=== PATIENT | female | born 1985 | race American Indian/Alaskan Native ===

== ENCOUNTER 2019-02-21 20:44 | Inpatient (IN) | payer MEDICAID ==
[2019-02-22 00:34] LABS: Hemoglobin 12.8 gm/dl (10.1-14.3); Mean Corpuscular HGB Conc 33 % (30-34); Mean Corpuscular Volume 85 fl (79-97); Platelet Count 294 K/mm3 (140-440); Red Blood Count 4.59 M/mm3 (3.65-5.03); Red Cell Distribution Width 13.6 % (13.2-15.2)
[2019-02-22] MEDS ORDERED: LACTATED RINGERS 1,000 ML ONE (00:36)
[2019-02-22] MEDS ORDERED: PITOCin/NS 30 UNIT/500ML 30,000 MILLIUNITS/500 ML BAG IV ONE (00:36)
[2019-02-22] MEDS ORDERED: STADOL IV PRN (00:37)
[2019-02-22] MEDS ORDERED: BRETHINE IVP PRN (00:37)
[2019-02-22] MEDS ORDERED: MINERAL OIL PO PRN (00:37)
[2019-02-22] MEDS ORDERED: XYLOCAINE 2% INFILTRATI ONE (00:37)
[2019-02-22] MEDS ORDERED: NARCAN 0.4 MG/1 ML IV PRN (00:37)
[2019-02-22] MEDS ORDERED: LACTATED RINGERS 1,000 ML IV SCH (01:00)
[2019-02-22] MEDS ORDERED: PITOCin/NS 30 UNIT/500ML 30 UNITS/500 ML BAG IV SCH (01:00)
[2019-02-22] MEDS ORDERED: PITOCin/NS 20 UNIT/1000ML DRIP 20 UNITS/1,000 ML BAG IV SCH (01:00)
--- NOTE | 2019-02-22 10:43 | History and Physical Report ---
History of Present Illness Date of examination: 02/22/19 (10:05) Date of admission: 02/21/19 20:44 Chief complaint: Induction of labor; 39 weeks 5days History of present illness: 34yo AA Fe , MURRAY (LMP), 39w5d, presents to L&D for IOL for AMA and Morbid Obesity. Pt initiated early care with [facility] at 8w 4d (regular consistent care, co-managed with [facility]). Records available for review. 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 labs: B positive, Rubella Immune, VDRL non-reactive, HIV negative, HBsAg Negative, GC/CHL/Trich Negative, GBS Negative. Past History Past Medical History: thyroid disease (In high school; resolved), other (Sleep Apnea (resolved after weight loss)) Past Surgical History: other ([place] Teeth 2006) [employer] History: herpes (On supression), trichomonas (03/2016; Negative in pregnan cy). denies: abnormal PAP smear, chlamydia, gonorrhea, hepatitis B, hepatitis C, HIV, syphilis Family/Genetic History: diabetes (brother and father), hypertension (father), o ther (Bipolar disorder (brother), Colon Cancer (father)) Social history: no significant social history, single, lives with family, full code. denies: smoking, alcohol abuse, prescription drug abuse, IV drug use - Obstetrical History Expected Date of Delivery: 02/24/19 Actual Gestation: 39 Week(s) 5 Day(s) : 2 Para: 1 Hx # Term Pregnancies: 1 Number of Pregnancies: 0 Spontaneous Abortions: 0 Induced : 0 Number of Living Children: 1 #1 Infant Gender: Female year: Birthweight: 3.6 kg Method of Delivery: Vaginal Gestational age at delivery: 40 Complications: none Medications and Allergies Allergies Allergy/AdvReac Type Severity Reaction Status Date / Time No Known Allergies Allergy Unverified 11/25/16 08:10 Home Medications Medication Instructions Recorded Confirmed Last Taken Type Vitamin 1 tab PO DAILY 05/14/16 02/22/19 1 Day Ago History ~02/21/19 Valacyclovir HCl [Valtrex] 1,000 mg PO DAILY 02/22/19 02/22/19 1 Day Ago History ~02/21/19 Active Meds: Active Medications Butorphanol Tartrate (Stadol) 2 mg IV Q2H PRN PRN Reason: Pain , Severe (7-10) Ephedrine Sulfate (Ephedrine Sulfate) 10 mg IV Q2M PRN PRN Reason: Hypotension Oxytocin/Sodium Chloride (Pitocin/Ns 20 Unit/1000ml Drip) 20 units in 1,000 mls @ 125 mls/hr IV DIRECT LEILA Oxytocin/Sodium Chloride (Pitocin/Ns 30 Unit/500ml) 30 units in 500 mls @ 4 mls/hr IV TITR LEILA; Protocol Lactated Ringer's (Lactated Ringers) 1,000 mls @ 125 mls/hr IV DIRECT LEILA Mineral Oil (Mineral Oil) 30 ml PO QHS PRN PRN Reason: Constipation Naloxone HCl (Narcan 0.4 Mg/1 Ml) 0.1 mg IV Q2MIN PRN PRN Reason: Res Rate </= 8 or 02 SAT < 92% Terbutaline Sulfate (Brethine) 0.25 mg IVP ONCE PRN PRN Reason: Hyperstimulation/Hypertonicity Review of Systems Eyes: normal appearance Cardiovascular: no chest pain, no shortness of breath Respiratory: no shortness of breath Breasts: normal Gastrointestinal: no nausea, no vomiting, no diarrhea, no constipation Genitourinary: normal appearance, vaginal bleeding (normal bloody show), contractions, no leakage of fluid, no genital sores Integumentary: no rash, no sores, no lesions - Vital Signs Vital signs: Vital Signs Temp Resp 98.7 F 18 02/21/19 22:34 02/21/19 22:34 Temp Pulse Resp BP Pulse Ox 98.5 F 80 18 120/71 02/22/19 07:55 02/22/19 07:30 02/22/19 04:00 02/22/19 07:30 - Physical Exam Breasts: Positive: normal Cardiovascular: Regular rate, Normal S1, Normal S2, No murmurs Lungs: Positive: Clear to auscultation, Normal air movement Abdomen: Positive: normal appearance, soft, normal bowel sounds. Negative: distention, tenderness Genitourinary (Female): Positive: normal external genitalia, normal perenium. Negative: perineal/vulvar lesions Vulva: both: normal Uterus: Positive: enlarged (gravid) Anus/Rectum: Positive: normal perianal skin Extremities: Positive: normal Deep Tendon Reflex Grade: Normal +2 - Obstetrical FHR: category 1 Uterine Contraction Monitor Mode: External Cervical Dilatation: 6 (Vertex. AROM 02/22/19 @ 10:05 lg amt clear fluid) Cervical Effacement Percentage: 75 station: 2 Uterine Contraction Pattern: Irregular Uterine Tone Measurement Phase: Resting Uterine Contraction Intensity: Mild Results Result Diagrams: 02/22/19 00:20 Abnormal lab results 02/22/19 Range/Units 00:20 WBC 12.1 H (4.5-11.0) K/mm3 All other labs normal. Assessment and Plan A: Term IUP 39w 5d Morbid obesity Category 1 tracing AROM 02/22/10 @10:05; large amt clear fluid P: Routine labor orders Pitocin Augmentation May IV pain med/Epidural PRN Anticipate
[2019-02-22] MEDS ORDERED: TYLENOL PO PRN (16:28)
[2019-02-22] MEDS ORDERED: ZOFRAN IV PRN (16:28)
[2019-02-22] MEDS ORDERED: PHENERGAN PO PRN (16:28)
[2019-02-22] MEDS ORDERED: BENADRYL PO PRN (16:28)
[2019-02-22] MEDS ORDERED: NORCO 5/325 PO PRN (16:28)
[2019-02-22] MEDS ORDERED: MILK OF MAGNESIA PO PRN (16:28)
[2019-02-22] MEDS ORDERED: LANSINOH TP PRN (16:28)
[2019-02-22] MEDS ORDERED: TUCKS PAD TP PRN (16:28)
[2019-02-22] MEDS ORDERED: DULCOLAX PR PRN (16:28)
--- NOTE | 2019-02-22 16:43 | Procedure Note ---
OB Delivery Note - Delivery Date of Delivery: 02/22/19 (16:13) Surgeon: MARY JO JONES (CHELLE) Estimated blood loss: 200cc - Vaginal Delivery presentation: vertex Delivery position: OA Intrapartum events: none Delivery induction: oxytocin Delivery augmentation: rupture of membranes Delivery monitor: external FHT, external uterine Route of delivery: (16:13) Delivery placenta: spontaneous (16:18) Delivery cord: 3 umbilical vessels Episiotomy: none Delivery laceration: 1st degree (small, approximates well. Left unrepaired) Anesthesia: intravenous Delivery comments: Called for impending delivery by L&D nurse. Arrived immediately following nurse delivery at 16:13. Infant in RW being assessed by NICU and RT d/t unexpected delivery while pt positioning for epidural. Spontaneous delivery of intact placenta with 3VC at 16:18. FF@U. Small first degree perineal laceration. approximates well. Good hemostasis. Left unrepaired. EBL 200cc. Infant and mother left in stable condition in L&D. - A at 1 minute: 8 at 5 minutes: 9 Gender: Male (8lbs 4oz, 3731 grams, 20")
[2019-02-22] MEDS ORDERED: SODIUM CHLORIDE FLUSH SYRINGE 10 ML IV NR (17:00)
[2019-02-22] MEDS: IBUPROFEN PO SCH (23:00)
[2019-02-23 04:39] LABS: Hematocrit 32.9 % (30.3-42.9); Hemoglobin 10.9 gm/dl (10.1-14.3)
--- NOTE | 2019-02-23 09:57 | Progress Note ---
Assessment and Plan - Patient Problems (1) Normal spontaneous vaginal delivery Current Visit: No Status: Acute Plan to address problem: Continue routine PP orders Anticipate d/c home tomorrow (2) Anemia Current Visit: Yes Status: Acute Qualifiers: Anemia type: other cause Other causes of anemia: acute posthemorrhagic Qualified Code(s): D62 - Acute posthemorrhagic anemia Plan to address problem: Asymptomatic Increase iron rich foods into diet Subjective - Subjective Date of service: 02/23/19 Principal diagnosis: S/P ; Anemia Interval history: See admission H & P; OB delivery summary and PP progress notes Patient reports: appetite normal, voiding normally, pain well controlled, flatus, ambulating normally : doing well, bottle feeding (and ) Objective - Vital Signs Latest vital signs: Vital Signs Temp Pulse Resp BP BP Pulse Ox 02/23/19 05:43 97.6 F 75 20 95/58 100 02/23/19 01:16 98.6 F 89 20 105/57 100 02/22/19 23:00 18 02/22/19 18:25 98.3 F 80 20 103/52 100 02/22/19 17:55 97.9 F 02/22/19 17:47 81 119/61 02/22/19 16:34 77 102/51 02/22/19 14:33 78 135/61 02/22/19 14:04 70 129/73 Intake and Output 02/22/19 02/23/19 02/23/19 23:59 07:59 15:59 Intake Total 480 Balance 480 Intake: Intake, Free Water 480 Other: Estimated Blood Loss 200 - Exam Breasts: Present: normal Cardiovascular: Present: Regular rate Lungs: Present: Normal air movement Abdomen: Present: soft, normal bowel sounds Uterus: Present: firm, fundal height below umbilicus (U-2) Extremities: Present: normal Deep Tendon Reflex Grade: Normal +2 Incision: Present: other (First degree laceration, healing as expected)
[2019-02-23] MEDS: IBUPROFEN PO SCH ×2 (10:01→17:52)
--- NOTE | 2019-02-23 10:01 | Discharge Summary ---
Providers - Providers Date of Admission: 02/21/19 20:44 Date of discharge: 02/24/19 (1200) Attending physician: JAREK HOGAN MD Primary care physician: JAREK HOGAN MD Hospitalization Reason for admission: induction of labor, IUP at term Delivery: Episiotomy: none Laceration: 1st degree (healing as expected) Other procedures: none complications: none Discharge diagnosis: IUP at term delivered, other (Anemia) [place] baby: male Hospital course: See admission H & P; OB delivery summary and PP progress notes Condition at discharge: Good Disposition: DC-01 TO HOME OR SELFCARE - Discharge Diagnoses (1) Normal spontaneous vaginal delivery Status: Acute (2) Anemia Status: Acute Qualifiers: Anemia type: other cause Other causes of anemia: acute posthemorrhagic Qualified Code(s): D62 - Acute posthemorrhagic anemia Plan - Provider Discharge Summary Activity: routine, no sex for 6 weeks, no heavy lifting 4 weeks, no strenuous exercise Diet: other (Iron rich foods) Instructions: routine Additional instructions: [] Smoking cessation referral if applicable(refer to patient education folder for contact #) [] Refer to [facility] Booklet Call your doctor immediately for: * Fever > 100.5 * Heavy vaginal bleeding ( >1 pad per hour) * Severe persistent headache * Shortness of breath * Reddened, hot, painful area to leg or breast * Drainage or odor from incision. * Keep incision clean and dry at all times and follow doctor's instructions regarding bathing/showering - Follow up plan Follow up: JAREK HOGAN MD [Primary Care Provider] - 6 Weeks
[2019-02-24] MEDS: IBUPROFEN PO SCH ×2 (06:07)
[2019-02-24 14:33] VITALS: BP 95/57
== END 2019-02-24 13:55 | disposition home or self-care (01) | DRG 775 ==
LOC: LD 20:44 → OB 02-22 18:23
PROVIDERS: ADMIT Obstetrics & Gynecology; ATTEND Obstetrics & Gynecology
PROC: 10E0XZZ Delivery of Products of Conception, External Approach (ICD-10-PCS; principal; 2019-02-22)
PROC: 3E033VJ Introduction of Other Hormone into Peripheral Vein, Percutaneous Approach (ICD-10-PCS; 2019-02-22)
DX: O99.214 Obesity complicating childbirth (principal); Z3A.39 39 weeks gestation of pregnancy; Z37.0 Single live birth; D62 Acute posthemorrhagic anemia; E66.01 Morbid (severe) obesity due to excess calories; O70.0 First degree perineal laceration during delivery; O90.81 Anemia of the puerperium
CPT/HCPCS: 36415; 85014; 85018; 85027; 86592; 86850; 86900; 86901; G0378; A6250; J0595; J2590; J7120